=== PATIENT | male | born 1945 | race Hispanic/Latino ===

== ENCOUNTER 2022-01-13 19:31 | Inpatient (IN) | payer MEDICARE, OTHER ==
[2022-01-13] MEDS ORDERED: Fentanyl 100 MCG/2 ML VIAL ONE (19:39)
[2022-01-13] MEDS ORDERED: Boostrix 0.5 ML (Tdap) VIAL ONE (19:39)
[2022-01-13] MEDS ORDERED: Ondansetron PF 4 MG/2 ML Vial ONE ×2 (19:45→21:19)
[2022-01-13 20:18] LABS: #Eosinphils 0.2 thou/uL (0.0-0.7); #Lymphocytes 2.1 thou/uL (1.20-3.40); #Monocytes 0.9 thou/uL (0.11-0.59); #Neutrophils 9.2 thou/uL (1.40-6.50); %Basophils 0.3 % (0.0-1.0); %Eosinophils 1.2 % (0.0-10.0); %Lymphocytes 16.9 % (21.0-51.0); %Monocytes 7.2 % (0.0-10.0); %Neutrophils 74.4 % (42.0-75.0); Hemoglobin 13.7 g/dL (14.0-18.0); Mean Corpuscular HGB CONC 31.6 g/dL (32.0-36.0); Mean Corpuscular Hemoglobin 27.7 pg (27.0-31.0); Mean Corpuscular Volume 87.7 fL (78.0-98.0); Platelet Count 273 thou/uL (130-400); Red Blood Cell (RBC) Count 4.95 mill/uL (4.70-6.10); White Blood Cell (WBC) Count 12.4 thou/uL (4.8-10.8)
[2022-01-13 20:32] LABS: INR-International Normal Ratio 3.4; PTT 33.8 sec (22.9-36.1); Prothrombin Time 35.5 sec (12.0-14.7)
[2022-01-13 20:38] LABS: ALT (SGPT) 22 U/L (8-55); AST (SGOT) 39 U/L (5-34); Albumin 4.2 g/dL (3.4-4.8); Alkaline Phosphatase 68 U/L (40-110); Anion Gap 15 mmol/L (10-20); BUN (Urea Nitrogen) 17 mg/dL (8.4-25.7); Bilirubin, Total 0.6 mg/dL (0.2-1.2); Calc. Creatinine Clearance 0 mL/min (70-130); Carbon Dioxide 22 mmol/L (23-31); Chloride 105 mmol/L (98-107); Globulin 3.3 g/dL (2.4-3.5); Glucose 161 mg/dL (83-110); Potassium 3.5 mmol/L (3.5-5.1); Protein, Total 7.5 g/dL (5.8-8.1); Sodium 138 mmol/L (136-145)
[2022-01-13] MEDS ORDERED: Morphine 4 MG/ML VIAL ONE (21:19)
[2022-01-13] MEDS ORDERED: hydrALAZINE 20 MG/ML VIAL SLOW IVP PRN (21:24)
[2022-01-13] MEDS ORDERED: Promethazine HCl 25 MG/ML VIAL IM PRN ×2 (21:24→21:34)
[2022-01-13] MEDS ORDERED: Morphine 2 MG/ML VIAL SLOW IVP PRN (21:24)
[2022-01-13] MEDS ORDERED: Ondansetron ODT 4 MG TAB PO PRN (21:24)
[2022-01-13] MEDS ORDERED: Dextrose 5% in Water 1,000 ML IV PRN (21:24)
[2022-01-13] MEDS ORDERED: HumaLOG 300 UNITS/3 ML VIAL SC PRN (21:24)
[2022-01-13] MEDS ORDERED: Dextrose 50% Abboject 50 ML SYRINGE SLOW IVP PRN (21:24)
[2022-01-13] MEDS ORDERED: Ondansetron PF 4 MG/2 ML Vial IVP PRN ×2 (21:24→21:34)
[2022-01-13] MEDS ORDERED: Acetaminophen 325 MG TAB PO SCH (21:30)
[2022-01-13] MEDS ORDERED: [UNRECOGNIZED DRUG - OTHER] IV SCH (21:30)
[2022-01-13] MEDS ORDERED: Phytonadione 10 MG/ML AMP SLOW IVP SCH (21:30)
[2022-01-13] MEDS ORDERED: HUMAN PROTHROMBIN COMPLX IV SCH (21:30)
[2022-01-13] MEDS ORDERED: Sodium Chloride 0.9% 1,000 ML IV SCH ×2 (21:30)
[2022-01-13] MEDS ORDERED: HUM PROTHROMBIN CPLX IV SCH (21:30)
[2022-01-13] MEDS ORDERED: Naloxone HCl 0.4 mg/ml Vial IV PRN (21:34)
[2022-01-13] MEDS ORDERED: HYDROmorphone 10 mg/100 ml CADD IVPB PRN (21:34)
[2022-01-13] MEDS ORDERED: Zolpidem Tartrate 5 MG TAB PO PRN (21:34)
[2022-01-13] MEDS ORDERED: diphenhydrAMINE 50 MG/ML VIAL IVP PRN (21:34)
[2022-01-13] MEDS ORDERED: diphenhydrAMINE 50 MG/ML VIAL IM PRN (21:34)
[2022-01-13] MEDS ORDERED: diphenhydrAMINE 25 MG CAP PO PRN (21:34)
[2022-01-13] MEDS ORDERED: Communication Order-Pharmacy FS SCH (21:45)
[2022-01-13] MEDS ORDERED: Potassium Phosphate 30 MMOL in Sodium Chloride 0.9% 250 ML 250 ML IVPB SCH (22:00)
[2022-01-13 23:32] VITALS: BMI 31.3
[2022-01-13 23:41] LABS: SARS-CoV-2 NAA Rapid Test Not Detected (NotDetected)
[2022-01-14] MEDS: Acetaminophen 500 MG TAB PO SCH ×4 (00:14→17:32)
[2022-01-14] MEDS ORDERED: Acetaminophen/Codeine 30-300mg Tablet PO SCH (01:00)
[2022-01-14 04:15] LABS: #Lymphocytes 0.8 thou/uL (1.20-3.40); #Monocytes 1.3 thou/uL (0.11-0.59); #Neutrophils 14.1 thou/uL (1.40-6.50); %Eosinophils 0.2 % (0.0-10.0); %Lymphocytes 4.9 % (21.0-51.0); %Monocytes 7.9 % (0.0-10.0); Hemoglobin 12.5 g/dL (14.0-18.0); Mean Corpuscular HGB CONC 31.7 g/dL (32.0-36.0); Mean Corpuscular Volume 88.5 fL (78.0-98.0); Mean Platelet Volume 7.8 fL (7.4-10.4); Platelet Count 233 thou/uL (130-400); Red Blood Cell (RBC) Count 4.47 mill/uL (4.70-6.10); White Blood Cell (WBC) Count 16.2 thou/uL (4.8-10.8)
[2022-01-14 04:19] LABS: Hemoglobin A1c 5.8 % (4.0-6.0)
[2022-01-14 04:23] LABS: INR-International Normal Ratio 1.3; PTT 25.7 sec (22.9-36.1); Prothrombin Time 16.1 sec (12.0-14.7)
[2022-01-14 04:37] LABS: Anion Gap 15 mmol/L (10-20); BUN (Urea Nitrogen) 15 mg/dL (8.4-25.7); Calc. Creatinine Clearance 89 mL/min (70-130); Calcium 8.4 mg/dL (7.8-10.44); Carbon Dioxide 21 mmol/L (23-31); Chloride 106 mmol/L (98-107); Glucose 138 mg/dL (83-110); Magnesium 1.7 mg/dL (1.6-2.6); Phosphorus 3.8 mg/dL (2.3-4.7); Potassium 4.4 mmol/L (3.5-5.1); Sodium 138 mmol/L (136-145)
[2022-01-14] MEDS ORDERED: Magnesium 2 GM/50 ML(in water) 3 GM in Premix Bag 1 BAG IVPB SCH (07:30)
[2022-01-14] MEDS ORDERED: Magnesium Sulfate 3 GM in Sodium Chloride 0.9% 100 ML IVPB SCH (07:30)
[2022-01-14] MEDS ORDERED: Pregabalin 50 MG CAP PO SCH (09:00)
[2022-01-14] MEDS: traMADol HCl 50 MG TAB PO SCH ×2 (11:03→17:34)
[2022-01-14] MEDS: Gabapentin 100 MG CAP PO SCH ×2 (15:16→20:14)
[2022-01-14] MEDS ORDERED: Lisinopril 5 MG TAB PO SCH (18:00)
[2022-01-14] MEDS: Tamsulosin HCl 0.4 MG CAP PO SCH (20:14)
[2022-01-14] MEDS: Senokot S 8.6-50 MG TAB PO SCH (20:15)
[2022-01-14] MEDS: Cyclobenzaprine 10 MG TAB PO PRN (20:22)
[2022-01-14] MEDS ORDERED: Tamsulosin HCl 0.4 MG CAP PO SCH (21:00)
[2022-01-14] MEDS ORDERED: Morphine 2 MG/ML VIAL SLOW IVP PRN (21:08)
[2022-01-15] MEDS: Acetaminophen 500 MG TAB PO SCH ×4 (00:30→18:08)
[2022-01-15] MEDS: traMADol HCl 50 MG TAB PO SCH ×4 (00:31→18:08)
[2022-01-15 04:13] LABS: #Eosinphils 0.2 thou/uL (0.0-0.7); #Monocytes 1.7 thou/uL (0.11-0.59); #Neutrophils 10.8 thou/uL (1.40-6.50); %Basophils 0.1 % (0.0-1.0); %Eosinophils 1.1 % (0.0-10.0); %Lymphocytes 13.7 % (21.0-51.0); %Monocytes 11.5 % (0.0-10.0); %Neutrophils 73.6 % (42.0-75.0); Hemoglobin 12.3 g/dL (14.0-18.0); Mean Corpuscular HGB CONC 33.6 g/dL (32.0-36.0); Mean Corpuscular Hemoglobin 29.9 pg (27.0-31.0); Mean Corpuscular Volume 88.9 fL (78.0-98.0); Mean Platelet Volume 7.9 fL (7.4-10.4); Platelet Count 188 thou/uL (130-400); RBC Distribution Width 12.7 % (11.5-14.5); Red Blood Cell (RBC) Count 4.11 mill/uL (4.70-6.10); White Blood Cell (WBC) Count 14.7 thou/uL (4.8-10.8)
[2022-01-15 04:52] LABS: Anion Gap 9 mmol/L (10-20); BUN (Urea Nitrogen) 11 mg/dL (8.4-25.7); Calc. Creatinine Clearance 111 mL/min (70-130); Calcium 8.2 mg/dL (7.8-10.44); Carbon Dioxide 26 mmol/L (23-31); Chloride 105 mmol/L (98-107); Glucose 97 mg/dL (83-110); Magnesium 2.2 mg/dL (1.6-2.6); Phosphorus 2.4 mg/dL (2.3-4.7); Potassium 4.1 mmol/L (3.5-5.1); Sodium 136 mmol/L (136-145)
[2022-01-15] MEDS: Gabapentin 100 MG CAP PO SCH (06:20)
[2022-01-15] MEDS ORDERED: Gabapentin 100 MG CAP PO SCH ×2 (06:28→07:30)
[2022-01-15] MEDS ORDERED: Gabapentin 300 MG CAP PO SCH (06:45)
[2022-01-15] MEDS: Senokot S 8.6-50 MG TAB PO SCH ×2 (07:29→21:17)
[2022-01-15] MEDS: Finasteride 5 MG TAB PO SCH (07:30)
[2022-01-15] MEDS: Lisinopril 5 MG TAB PO SCH (07:30)
[2022-01-15] MEDS: Lansoprazole 3 MG/ML ORAL SUSPENSION PER TUBE SCH (07:30)
[2022-01-15] MEDS: Polyethylene Glycol 3350 17 GM Packet PO SCH (07:30)
[2022-01-15] MEDS: FLUoxetine HCl 20 MG CAP PO SCH (07:30)
[2022-01-15] MEDS ORDERED: [UNRECOGNIZED DRUG - OTHER] PO SCH (09:00)
[2022-01-15] MEDS ORDERED: NUT TX GLUC INTOLER LAC FR SOY PO SCH (09:00)
[2022-01-15 09:41] VITALS: BP 141/78
[2022-01-15] MEDS: Gabapentin 300 MG CAP PO SCH ×2 (12:57→21:18)
[2022-01-15] MEDS: Tamsulosin HCl 0.4 MG CAP PO SCH (21:18)
[2022-01-16] MEDS: traMADol HCl 50 MG TAB PO SCH ×2 (00:04→06:02)
[2022-01-16] MEDS: Acetaminophen 500 MG TAB PO SCH ×2 (00:05→06:00)
[2022-01-16] MEDS: Gabapentin 300 MG CAP PO SCH (06:03)
[2022-01-16] MEDS ORDERED: Ibuprofen 600 MG TAB PO SCH ×2 (06:30→12:00)
[2022-01-16 07:53] VITALS: TEMP 98
[2022-01-16] MEDS: Lisinopril 5 MG TAB PO SCH (08:27)
[2022-01-16] MEDS: Finasteride 5 MG TAB PO SCH (08:27)
[2022-01-16] MEDS: FLUoxetine HCl 20 MG CAP PO SCH (08:27)
[2022-01-16] MEDS: Senokot S 8.6-50 MG TAB PO SCH (08:27)
[2022-01-16] MEDS: Polyethylene Glycol 3350 17 GM Packet PO SCH (08:28)
[2022-01-16] MEDS: Lansoprazole 3 MG/ML ORAL SUSPENSION PER TUBE SCH (08:31)
[2022-01-16] MEDS: Cyclobenzaprine 10 MG TAB PO PRN (08:31)
[2022-01-16] MEDS ORDERED: Pregabalin 75 MG CAP PO SCH (09:00)
== END 2022-01-16 08:45 | DRG 964 ==
LOC: ERS 19:31 → IMCU/EMU 21:20
PROVIDERS: ADMIT Student in an Organized Health Care Education/Training Program; ATTEND Specialist
DX: S06.5X9A Traumatic subdural hemorrhage with loss of consciousness of unspecified duration, initial encounter (principal); S27.2XXA Traumatic hemopneumothorax, initial encounter; S22.42XA Multiple fractures of ribs, left side, initial encounter for closed fracture; S27.321A Contusion of lung, unilateral, initial encounter; S27.892A Contusion of other specified intrathoracic organs, initial encounter; Z20.822 Contact with and (suspected) exposure to COVID-19; W11.XXXA Fall on and from ladder, initial encounter; I10 Essential (primary) hypertension; E78.5 Hyperlipidemia, unspecified; N40.0 Benign prostatic hyperplasia without lower urinary tract symptoms; E11.9 Type 2 diabetes mellitus without complications; Z79.84 Long term (current) use of oral hypoglycemic drugs; Z79.899 Other long term (current) drug therapy
CPT/HCPCS: 36415; 36416; 70450; 71045; 71260; 72125; 74177; 80048; 80053; 83036; 83735; 84100; 85025; 85610; 85730; 90471; 90715; 93005; 96365; 96375; 96376; G0390; J2270; J2405; J3010; J3430; J3475; J3490; J7050; J7168; U0002

== ENCOUNTER 2022-01-18 12:11 | Emergency (ER) | payer MEDICARE, OTHER ==
[~2022-01-18 12:11] MED LIST: Iopamidol-370 76% 500 ML 1 ML ONE
[2022-01-18 13:05] LABS: #Eosinphils 0.1 thou/uL (0.0-0.7); #Lymphocytes 1.2 thou/uL (1.20-3.40); #Monocytes 1.2 thou/uL (0.11-0.59); #Neutrophils 10.6 thou/uL (1.40-6.50); %Basophils 0.1 % (0.0-1.0); %Lymphocytes 9.3 % (21.0-51.0); %Monocytes 9.2 % (0.0-10.0); %Neutrophils 80.4 % (42.0-75.0); Hemoglobin 12.9 g/dL (14.0-18.0); Mean Corpuscular HGB CONC 32.6 g/dL (32.0-36.0); Mean Corpuscular Hemoglobin 29.1 pg (27.0-31.0); Mean Corpuscular Volume 89.1 fL (78.0-98.0); Mean Platelet Volume 7.3 fL (7.4-10.4); Platelet Count 298 thou/uL (130-400); RBC Distribution Width 13.3 % (11.5-14.5); Red Blood Cell (RBC) Count 4.44 mill/uL (4.70-6.10); White Blood Cell (WBC) Count 13.2 thou/uL (4.8-10.8)
[2022-01-18] MEDS ORDERED: Morphine 4 MG/ML VIAL ONE (13:06)
[2022-01-18] MEDS ORDERED: diphenhydrAMINE 50 MG/ML VIAL ONE (13:06)
[2022-01-18] MEDS ORDERED: methylPREDNISolone Sod Succ 40 MG VIAL ONE (13:06)
[2022-01-18] MEDS ORDERED: Famotidine/PF 20 mg/2ml Vial ONE (13:06)
[2022-01-18 13:19] LABS: INR-International Normal Ratio 1.1; Prothrombin Time 14.1 sec (12.0-14.7)
[2022-01-18 13:20] LABS: PTT 26.7 sec (22.9-36.1)
[2022-01-18 13:32] LABS: ALT (SGPT) 15 U/L (8-55); AST (SGOT) 17 U/L (5-34); Albumin 3.6 g/dL (3.4-4.8); Alkaline Phosphatase 55 U/L (40-110); Anion Gap 15 mmol/L (10-20); BUN (Urea Nitrogen) 13 mg/dL (8.4-25.7); Calc. Creatinine Clearance 0 mL/min (70-130); Calcium 8.6 mg/dL (7.8-10.44); Carbon Dioxide 28 mmol/L (23-31); Chloride 99 mmol/L (98-107); Glucose 109 mg/dL (83-110); Lipase 16 U/L (8-78); Magnesium 2.1 mg/dL (1.6-2.6); Potassium 4.5 mmol/L (3.5-5.1); Protein, Total 6.6 g/dL (5.8-8.1); Sodium 137 mmol/L (136-145)
[2022-01-18 13:54] LABS: Bacteria/HPF None Seen HPF (None Seen); Bilirubin Negative (Negative); Blood, Urine Negative (Negative); Clarity Clear (Clear); Glucose, Urine (Dipstick) 30 mg/dL (Negative); Ketone, Urine Negative (Negative); Leukocyte Negative Leu/uL (Negative); Nitrite Negative (Negative); Protein, Urine (Dipstick) 30 mg/dL (Neg-Trace); RBC/HPF 0-3 HPF (0-3); Specific Gravity, Urine 1.029 (1.002-1.036); Squamous Epithelial 0-3 HPF (0-3); Urobilinogen Normal mg/dL (Less than 2); WBC/HPF 0-3 HPF (0-3); pH, Urine 6.5 (5.0-9.0)
== END 2022-01-18 21:16 ==
LOC: ERS 12:11
DX: S06.309A Unspecified focal traumatic brain injury with loss of consciousness of unspecified duration, initial encounter (principal); S27.0XXA Traumatic pneumothorax, initial encounter; S22.42XA Multiple fractures of ribs, left side, initial encounter for closed fracture; Z86.718 Personal history of other venous thrombosis and embolism; E11.9 Type 2 diabetes mellitus without complications; I10 Essential (primary) hypertension; E78.5 Hyperlipidemia, unspecified; Z79.01 Long term (current) use of anticoagulants; Z79.899 Other long term (current) drug therapy; W11.XXXA Fall on and from ladder, initial encounter
CPT/HCPCS: 36415; 70450; 71045; 71275; 74177; 80053; 81003; 81015; 83690; 83735; 84443; 84484; 85025; 85610; 85730; 93005; 94760; 96374; 96375; J1200; J2270; J2920; Q9967; S0028

== ENCOUNTER 2022-02-12 21:07 | Emergency (ER) | payer MEDICARE, OTHER ==
[2022-02-12 22:32] LABS: #Basophils 0.1 thou/uL (0.0-0.2); #Eosinphils 0.4 thou/uL (0.0-0.7); #Lymphocytes 1.8 thou/uL (1.20-3.40); #Monocytes 0.8 thou/uL (0.11-0.59); #Neutrophils 5.7 thou/uL (1.40-6.50); %Basophils 0.8 % (0.0-1.0); %Monocytes 8.5 % (0.0-10.0); %Neutrophils 64.6 % (42.0-75.0); Hemoglobin 12.4 g/dL (14.0-18.0); Mean Corpuscular HGB CONC 31.6 g/dL (32.0-36.0); Mean Corpuscular Hemoglobin 28.5 pg (27.0-31.0); Mean Platelet Volume 7.5 fL (7.4-10.4); Platelet Count 267 thou/uL (130-400); RBC Distribution Width 13.6 % (11.5-14.5); Red Blood Cell (RBC) Count 4.34 mill/uL (4.70-6.10); White Blood Cell (WBC) Count 8.8 thou/uL (4.8-10.8)
[2022-02-12 22:43] LABS: INR-International Normal Ratio 1.1; PTT 26.5 sec (22.9-36.1)
[2022-02-12 23:38] LABS: Anion Gap 12 mmol/L (10-20); BUN (Urea Nitrogen) 9 mg/dL (8.4-25.7); Calc. Creatinine Clearance 0 mL/min (70-130); Calcium 9.2 mg/dL (7.8-10.44); Carbon Dioxide 26 mmol/L (23-31); Chloride 105 mmol/L (98-107); Glucose 90 mg/dL (83-110); Sodium 139 mmol/L (136-145)
== END 2022-02-12 23:52 | disposition home or self-care (01) ==
LOC: ERS 21:07
DX: I82.442 Acute embolism and thrombosis of left tibial vein (principal); E11.9 Type 2 diabetes mellitus without complications; I10 Essential (primary) hypertension; Z79.899 Other long term (current) drug therapy
CPT/HCPCS: 36415; 80048; 83880; 85025; 85610; 85730; 93970